=== PATIENT | male | born 1950 | race Caucasian/White ===

== ENCOUNTER 2022-07-09 11:06 | Inpatient (IN) | payer MEDICARE, MEDICAID, SELFPAY ==
[2022-07-09] VITALS (18 sets, daily range): BP systolic 123–139; BP diastolic 63–94; PULSE 79–88; RESP 16–20; TEMP 36.2–36.9; O2SAT 93–97
--- NOTE | ~2022-07-09 | CT_ITS ---
EXAMINATION: CT brain wo con DATE: 07/09/2022 20:37 INDICATION: AMS . TECHNIQUE: Computed tomography (CT) of the head was performed with intravenous contrast. The mA was a djusted according to patient size. Iterative reconstruction technique was employed. The dose-length p roduct was 1816.00 mGy-cm. COMPARISON: None. FINDINGS: Exam limited by motion artifact requiring multiple sets of repeat imaging. A small portion of the lef t frontal lobe near the vertex was not included in the [id number]. No acute intracranial hemorrhage or extra-axial fluid collection. No hydrocephalus, mass, or herniation. No acute ischemic infarct. Unremarkable dural venous sinus attenuation. No acute osseous abnormality. The aerated spaces are clear. Mild atrophy and chronic white matter change. Atherosclerotic intracranial calcification. Focal old r ight cerebellar infarct. Left lens replacement. IMPRESSION: Mildly limited examination as detailed above. No acute intracranial process. Reviewed, dictated and finalized at location K.
--- NOTE | ~2022-07-09 | CT_ITS ---
EXAMINATION: CT abdomen pelvis wo con DATE: 07/11/2022 08:32 INDICATION: Nausea and vomiting. TECHNIQUE: Computed tomography (CT) of the abdomen and pelvis was performed without intravenous contr ast. Automated exposure control and iterative reconstruction technique were employed. The dose-length product was 612.23 mGy-cm. COMPARISON: CT abdomen and pelvis 03/19/2018 FINDINGS: The visualized portions of the lung bases demonstrate mild dependent atelectasis bilaterall y. No pleural effusion. The heart size is normal. No pericardial effusion. There is a moderate-sized sliding hiatal hernia. The liver demonstrates pneumobilia, likely secondary to sphincterotomy. There are changes of cholecystectomy. The spleen, pancreas, and adrenal glands are normal. There is cortica l thinning of the kidneys. There are cysts in the kidneys measuring up to 5.0 cm on the right. The pr ostate is mildly enlarged. There is diverticulosis of the colon without evidence of diverticulitis. T he appendix is normal. There are no dilated loops of bowel. There are no pathologically enlarged lymp h nodes. There is no free intraperitoneal fluid. There is severe thoracic spondylosis and mild lumbar spondylosis. There are is a hemangioma in L2 vertebral body. IMPRESSION: 1. Moderate-sized sliding hiatal hernia. Reviewed, dictated and finalized at location A.
--- NOTE | ~2022-07-09 | XR_ITS ---
EXAMINATION: XR chest 1V portable Exam Date/Time: 07/09/2022 19:20 CDT HISTORY: AMS Comparison: 04/25/2019. RESULT: Lines, tubes, and devices: Cholecystectomy clips. Lungs and pleura: Patchy airspace and reticular opacities in the bilateral mid and lower lungs. Biba silar scar/atelectasis. Cardiomediastinal silhouette: Stable. Small hiatal hernia. Other: No acute osseous or upper abdominal finding. IMPRESSION: Bilateral pulmonary opacities may represent pulmonary edema. Infection is not excluded. Reviewed, dictated and finalized at location K. IMPRESSION: Bilateral pulmonary opacities may represent pulmonary edema. Infection is not e xcluded.
--- NOTE | 2022-07-09 11:11 | PC.NURSE ---
Multiple attempts to evaluate SpO2. with help of staff. Staff reports that pt does not like things on fingers at all and has never allow SpOs eval while at facility.
--- NOTE | 2022-07-09 13:20 | ECG_ITS ---
Measurements Intervals [place] Rate: 77 P: 50 SC: 160 QRS: -7 QRSD: 90 T: 10 QT: 363 QTc: 413 Interpretive Statements SINUS RHYTHM WITH SINUS ARRHYTHMIA NONSPECIFIC T-WAVE ABNORMALITY ABNORMAL ECG COMPARED TO ECG 04/28/2019 17:15:52 SINUS RHYTHM NOW PRESENT SINUS ARRHYTHMIA NOW PRESENT Electronically Signed On 07-10-2022 13:39:48 CDT by Raúl Mullins M.D.
[2022-07-09 14:58] LABS: Basophils Absolute Auto 0.1 K/mm3 (0.0-0.1); Basophils Percent Auto 0.8 % (0.2-1.2); Eosinophils Absolute Auto 0.1 K/mm3 (0-0.3); Eosinophils Percent Auto 0.8 % (0-4.4); Hematocrit 47.3 % (42.0-52.0); Hemoglobin 15.1 g/dL (14.0-18.0); Immature Granulocyte Absolute 0.02 K/mm3 (0.00-0.031); Immature Granulocyte Percent A 0.3 % (0-0.5); Lymphocytes Absolute Auto 0.91 K/mm3 (0.9-3.2); Lymphocytes Percent Auto 12.5 % (18.3-44.2); Mean Corpuscular HGB Conc 31.9 g/dl (32-36); Mean Corpuscular Hemoglobin 28.9 pg (26-34); Mean Corpuscular Volume 90.6 fl (80-100); Mean Platelet Volume 9.4 fl (7.4-10.4); Monocytes Absolute Auto 0.7 K/mm3 (0.1-0.6); Monocytes Percent Auto 9.2 % (2.6-8.5); Neutrophils Absolute Auto 5.6 K/mm3 (1.3-6.7); Neutrophils Percent Auto 76.4 % (45.5-73.1); Platelet Count Result 259 k/mm3 (150-375); Red Blood Count 5.22 M/mm3 (4.6-6.20); Red Cell Distribution Width 13.2 % (11.5-14.5); White Blood Count 7.3 K/mm3 (4.5-10.0)
[2022-07-09 15:10] LABS: Alanine Aminotransferase 36 U/L (6-50); Albumin Level 4.5 g/dL (3.5-5.1); Alkaline Phosphatase 122 U/L (38-126); Anion Gap 10 mmol/L (8-16); Aspartate Amino Transferase 28 U/L (17-59); Bilirubin,Total 0.9 mg/dL (0.2-1.3); Blood Urea Nitrogen 28 mg/dL (9-20); Calcium 9.3 mg/dL (8.4-10.2); Carbon Dioxide 26 mmol/L (22-30); Chloride 103 mmol/L (98-107); Estimated CRCL calculation 36 ml/min; Estimated Glomerular Filt Rate 55; Glucose 99 mg/dL (65-110); Potassium 4.3 mmol/L (3.4-5.0); Sodium 139 mmol/L (137-145)
--- NOTE | 2022-07-09 17:54 | ED.MALEGU ---
HPI - Male Genitourinary General Chief complaint: Urogenital-Male Stated complaint: UTI on bactrim - not eating or drinking Time Seen by Provider: 07/09/22 17:45 History of Present Illness HPI Narrative: Patient is a 72-year-old male with a history of intellectual disability, epilepsy, hypertension, here with his grain combiner from his correction for concerns for altered mental status. History obtained from patient's grain combiner. According to the grain combiner, patient has been more lethargic than usual, not acting like his usual self, not eating or drinking. He has spiked low-grade fevers at home that they have been treating with Tylenol. He has been coughing purulent sputum. He was taken to an urgent care facility yesterday and was diagnosed with a UTI and started on Bactrim, but the patient has been refusing this. Related Data Home Medications Medication Instructions Recorded Confirmed amlodipine 5 mg tablet 5 mg PO DAILY 04/26/19 07/09/22 calcium carbonate 500 mg calcium 500 mg PO BID 04/26/19 07/09/22 (1,250 mg) chewable tablet (Calcium 500) cetirizine 10 mg tablet (Zyrtec) 10 mg PO DAILY 04/26/19 07/09/22 simvastatin 20 mg tablet 20 mg PO HS 04/26/19 07/09/22 omeprazole 20 mg PO DAILY 07/09/22 07/09/22 sulfamethoxazole 800 mg PO DAILY 07/09/22 07/09/22 Allergies Allergy/AdvReac Type Severity Reaction Status Date / Time No Known Allergies Allergy Verified 07/09/22 11:07 Review of Systems Review of Systems: ROS unobtainable: Yes unobtainable due to mental status [facility] Past Medical History Medical History (Updated 07/09/22 @ 21:10 by Chikis Robertson PA-C) Allergic rhinitis Cataracts, bilateral Diverticulosis History of osteoporosis HLD (hyperlipidemia) HTN (hypertension) Intellectual disability Seizures Surgical History Surgical History Surgical history unknown Family History Family History Unknown Family history unknown Unable to be obtained as patient is nonverbal Other Cerebrovascular accident Diabetes mellitus History of blood clots Hypertension Prostate carcinoma Social History Social History Social History: Patient is from a correction. There was a caregiver with him earlier but he is nonverbal at baseline. Smoking status: Never smoker Second hand tobacco smoke exposure: No Alcohol intake: never Substance use: never Substance use type: does not use Living arrangements: correction Gender identity (if verbalized by the patient): Male Spiritual care concerns: No Exam Narrative: APPEARANCE: Alert, well-appearing, waving and winking at examiner Head: Normocephalic and atraumatic. EYES: PERRLA/EOMI, conjunctivae clear NOSE: No nasal drainage EARS: External ear normal in appearance THROAT: Oropharynx is clear. Mucous membranes are moist. NECK: Supple. No adenopathy, no masses. RESPIRATORY: Coughing throughout exam. Coarse breath sounds throughout. CARDIOVASCULAR: Regular rate and rhythm without murmurs, rubs, or gallops. ABDOMINAL: Normoactive bowel sounds. Soft, nontender, nondistended. No rebound tenderness or guarding. MUSCULOSKELETAL: Trace pitting edema to BLE. Extremities are warm and well-perfused. Moves all extremities well. NEURO: Normal speech. No focal neurologic deficits. SKIN: Skin is warm and dry. No rashes. PSYCHIATRIC: Normal affect/mood. Course Vital Signs Vital signs: Vital Signs Temperature 98.4 F 07/09/22 11:09 Pulse Rate 88 07/09/22 11:09 Respiratory Rate 20 07/09/22 11:09 Blood Pressure 131/75 07/09/22 11:09 Oxygen Delivery Room Air 07/09/22 11:09 Temperature 97.1 F L 07/09/22 23:55 Pulse Rate 86 07/09/22 23:55 Respiratory Rate 16 07/09/22 23:55 Blood Pressure 123/63 07/09/22 23:55 Pulse Oximetry 94 07/09/22 23:55 Oxyg
[2022-07-09] MEDS: LORazepam INJ (*CRX) 2 MG/ML VIAL 0.5 MG IM (18:36)
--- NOTE | 2022-07-09 18:40 | PC.NURSE ---
PT WAS TAKEN DOWN TO CT SCAN FOR IMAGING. PT IS UNABLE TO FOLLOW COMMANDS. WON'T LIE FLAT OR STILL. COUGHING AND GAGGING SELF WITH DARK LOOKING EMESIS BEING SPIT OUT. TAKEN BACK TO ROOM. DERRICK MADE AWARE. UNABLE TO INITIATE IV D/T NOT STAYING STILL AND CHEYANNE ARMS. IM ATIVAN GIVEN PER ORDER. WILL AWAIT PT CALMING DOWN. PT'S HELPER IS AT BEDSIDE AND REPORTS THAT PT ATE CHOCOLATE COVERED RAISINS THIS AFTERNOON.
[2022-07-09 19:03] LABS: Appearance Urine Clear (Clear); Bacteria Urine None Seen /hpf; Bilirubin Urine 1+ (Negative); Blood Urine Negative (Negative); Color Urine Dark Yellow (Yellow); Glucose Urine UA Negative (Negative); Ketones Urine Trace mg/dL (Negative); Leukocyte Esterase Ur Negative LEU/UL (Negative); Need Manual Microscopic Reviewed; Nitrate Urine Negative (Negative); Protein Urine 1+ mg/dL (Negative); RBC Urine 0-2 /hpf (0-2); Specific Grav Ur 1.033 (1.001-1.035); Squamous Epithelial Cell Urine Occasional /hpf (Few); WBC Urine 0-5 /hpf; pH Urine 5.5 (5.0-9.0)
[2022-07-09 19:07] LABS: Add Urine Microscopic? YES
--- NOTE | 2022-07-09 19:10 | PC.NURSE ---
REPORT TO BENTON HUI. CARE TRANSFERRED
[2022-07-09] MEDS: ONDANSETRON INJ 4 MG/2 ML VIAL IV PUSH (19:37)
[2022-07-09 19:40] LABS: Lactic Acid Reflex 0.9 mmol/L (0.7-2.0); Magnesium 2.5 mg/dL (1.6-2.3)
[2022-07-09 20:10] LABS: NT Pro B Type Natriuretic Pept 182 pg/mL (19.9-100)
[2022-07-09] MEDS: SODIUM CHLORIDE 0.9% IV 1,000 ML 999 ML IV CONT (21:12)
--- NOTE | 2022-07-09 21:20 | PM.IMHP ---
H&P: HPI History of Present Illness Date/Time: 07/09/22 21:20 Chief Complaint: Fevers Narrative: This is a 72-year-old male with past medical history significant for intellectual disability, seizure disorder, atrial fibrillation, hypertension, dyslipidemia, type 2 diabetes mellitus. Patient was brought for evaluation to the emergency room due to fevers productive cough patient is unable to give any history he is nonverbal according to caregiver who is at bedside states that patient can speak some words however does not make any sense . Patient had been seen the day before at an urgent care and prescribed antibiotics, Bactrim, however has had poor per orally intake and has refused to take it. Preliminary workup was significant for chest x-ray was reported as: RESULT: Lines, tubes, and devices:? Cholecystectomy clips. Lungs and pleura:? Patchy airspace and reticular opacities in the bilateral mid and lower lungs. Bibasilar scar/atelectasis. Cardiomediastinal silhouette:? Stable. Small hiatal hernia. Other:? No acute osseous or upper abdominal finding. ? IMPRESSION: Bilateral pulmonary opacities may represent pulmonary edema. Infection is not excluded. CT head was reported as: FINDINGS: Exam limited by motion artifact requiring multiple sets of repeat imaging. A small portion of the left frontal lobe near the vertex was not included in the [id number]. No acute intracranial hemorrhage or extra-axial fluid collection. No hydrocephalus, mass, or herniation. No acute ischemic infarct. Unremarkable dural venous sinus attenuation. No acute osseous abnormality. The? aerated spaces are clear. Mild atrophy and chronic white matter change. Atherosclerotic intracranial calcification. 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 Left lens replacement. IMPRESSION:? Mildly limited examination as detailed above. No acute intracranial process. Patient has been admitted for further evaluation management and treatment. Review of Systems Review of Systems: ROS unobtainable: Yes unobtainable due to medical condition (Intellectual disability) [facility] Past Medical History Medical History (Updated 07/09/22 @ 21:10 by Chikis Robertson PA-C) Allergic rhinitis Cataracts, bilateral Diverticulosis History of osteoporosis HLD (hyperlipidemia) HTN (hypertension) Intellectual disability Seizures Surgical History Surgical History Surgical history unknown Family History Family History Unknown Family history unknown Unable to be obtained as patient is nonverbal Social History Social History Social History: Patient is from a [facility]. There was a caregiver with him earlier but he is nonverbal at baseline. Smoking status: Unknown if ever smoked Alcohol intake: never Substance use: unknown Substance use type: unknown Living arrangements: penitentiary Gender identity (if verbalized by the patient): Male Meds Home Medications and Allergies Home Medications Medication Instructions Recorded Confirmed Type amlodipine 5 mg tablet 5 mg PO DAILY 04/26/19 10/31/20 History calcium carbonate 500 mg calcium 500 mg PO BID 04/26/19 10/31/20 History (1,250 mg) chewable tablet (Calcium 500) cetirizine 10 mg tablet (Zyrtec) 10 mg PO DAILY 04/26/19 10/31/20 History denosumab 60 mg/mL subcutaneous 60 mg subcut [id number] 04/26/19 10/31/20 History syringe (Prolia) famotidine 20 mg tablet (Pepcid AC) 40 mg PO DAILY 04/26/19 10/31/20 History furosemide 20 mg tablet (Lasix) 20 mg PO 2XW 04/26/19 10/31/20 History simvastatin 20 mg tablet 20 mg PO HS 04/26/19 10/31/20 History triamcinolone acetonide topical 2XW 04/26/19 10/31/20 History aspirin 325 mg tablet,delayed 325 mg PO QAM #30 tabs 04/30/19 10/31/20 Rx release Allergies Allergy/AdvR
[2022-07-09 21:51] LABS: Influenza A QL RT-PCR Negative (Negative); Influenza B QL RT-PCR Negative (Negative); SARS-CoV-2 RNA PCR Negative
--- NOTE | 2022-07-09 23:01 | ADMGEN ---
This patient, Edwin Parnell, was admitted to 2 Medical Room 258-. Patient/family oriented to hospital policies and general routines including ID bracelet, bed and alarms, visiting hours, pain management, procedures, bathroom and other care routines, personal items, smoking policy, room service/diet, and visiting hours. Information on how to activate the Rapid Response Team has been discussed. Patient/Family are encouraged to report perceived risks to care and to ask questions if they do not understand what they are told or what they should do.
--- NOTE | 2022-07-09 23:25 | PC.NURSE ---
Called the patient's POA, [place]. The POA was unable to provide information regarding medications that the patient is currently taking or specific medical history. The patient did not come with any paperwork from the facility that he came from and the POA was unable to provide the name of the facility either.
[2022-07-10 06:00] VITALS: BP 101/63; PULSE 81; RESP 20; TEMP 36.2; O2SAT 98
[2022-07-10 09:48] VITALS: BP 127/77
--- NOTE | 2022-07-10 09:53 | PC.NURSE ---
Unable to get patient to take PO meds at this time, will continue to attempt.
[2022-07-10 10:28] VITALS: O2SAT 96
[2022-07-10 10:49] LABS: Hematocrit 42.1 % (42.0-52.0); Hemoglobin 13.8 g/dL (14.0-18.0); Mean Corpuscular HGB Conc 32.8 g/dl (32-36); Mean Corpuscular Hemoglobin 29.1 pg (26-34); Mean Corpuscular Volume 88.6 fl (80-100); Mean Platelet Volume 9.8 fl (7.4-10.4); Platelet Count Result 237 k/mm3 (150-375); Red Blood Count 4.75 M/mm3 (4.6-6.20); Red Cell Distribution Width 12.8 % (11.5-14.5); White Blood Count 6.2 K/mm3 (4.5-10.0)
[2022-07-10 10:57] LABS: Anion Gap 5 mmol/L (8-16); Blood Urea Nitrogen 28 mg/dL (9-20); Calcium 8.6 mg/dL (8.4-10.2); Carbon Dioxide 29 mmol/L (22-30); Chloride 104 mmol/L (98-107); Estimated CRCL calculation 45 ml/min; Estimated Glomerular Filt Rate > 60; Glucose 114 mg/dL (65-110); Potassium 4.1 mmol/L (3.4-5.0); Sodium 138 mmol/L (137-145)
--- NOTE | 2022-07-10 13:14 | PC.NURSE ---
On 07/10/22, the student, [Jenae Kumar], provided care and completed [facility] documentation on this patient. I have reviewed the student's documentation and agree with the findings.
[2022-07-10 14:00] VITALS: BP 123/77; PULSE 92; RESP 16; TEMP 37.1
--- NOTE | 2022-07-10 16:13 | PM.IMPN ---
Progress Note: A&P Assessment and Plan (1) Community acquired pneumonia: Qualifiers: Laterality: right Lung location: lower lobe of lung Qualified Code(s): J18.9 - Pneumonia, unspecified organism Code(s): J18.9 - Pneumonia, unspecified organism Status: Acute Assessment and Plan: patient presented to the ED with caregiver stating patient has been coughing. Chest x-ray revealing bilateral pulmonary opacities may represent pulmonary edema infection not excluded. Patient started on Rocephin and Zithromax Cultures no growth to date Supportive care Continue to monitor Vital signs and labs stable. Possible discharge tomorrow if patient is condition remains unchanged (2) Vomiting: Code(s): R11.10 - Vomiting, unspecified Status: Acute Assessment and Plan: Patient with episode of vomiting on 07/10/2022. Zofran p.r.n. Patient received IV fluids CT abdomen pelvis ordered. Labs for the morning include CRP, lactic acid, lipase, CBC, CMP and magnesium. (3) HTN (hypertension): Code(s): I10 - Essential (primary) hypertension Status: Acute Assessment and Plan: Resume home meds Continue to monitor (4) Intellectual disability: Code(s): F79 - Unspecified intellectual disabilities Status: Acute Assessment and Plan: Unchanged Supportive care Resides at home group Subjective Date/time seen: 07/10/22 16:13 Interval history: Patient is non verbal. Patient had episode of vomiting. Patient getting Zofran and CT abdomen pelvis ordered. Patient originally admitted for fever and productive cough. Review of Systems Review of Systems: ROS unobtainable: Yes unobtainable due to medical condition Exam Narrative: GENERAL: Comfortable, no acute distress HENMT: moist mucous membranes RESPIRATORY: clear to auscultation CARDIO: RRR GI: soft, nontender, bowel sounds present SKIN: no rashes EXTREMITIES: no edema, redness or tenderness Objective Data Vital Signs Vital Signs: Vital Signs - 24 hr 07/09/22 19:41 07/09/22 19:46 07/09/22 20:01 Temperature Pulse Rate Respiratory Rate Blood Pressure 136/94 H 126/80 136/91 H Pulse Oximetry Oxygen Delivery 07/09/22 20:16 07/09/22 20:41 07/09/22 20:45 Temperature Pulse Rate Respiratory Rate Blood Pressure 136/94 H Pulse Oximetry 94 95 Oxygen Delivery 07/09/22 21:00 07/09/22 21:15 07/09/22 21:30 Temperature Pulse Rate Respiratory Rate Blood Pressure Pulse Oximetry 95 97 96 Oxygen Delivery 07/09/22 21:45 07/09/22 22:00 07/09/22 22:15 Temperature Pulse Rate Respiratory Rate Blood Pressure Pulse Oximetry 96 96 93 Oxygen Delivery 07/09/22 22:30 07/09/22 22:36 07/09/22 22:43 Temperature 97.4 F L Pulse Rate Respiratory Rate Blood Pressure 133/89 Pulse Oximetry 93 94 Oxygen Delivery 07/09/22 23:55 07/10/22 06:00 07/10/22 09:48 Temperature 97.1 F L 97.2 F L Pulse Rate 86 81 Respiratory Rate 16 20 Blood Pressure 123/63 101/63 127/77 Pulse Oximetry 94 98 Oxygen Delivery 07/10/22 10:28 07/10/22 10:00 07/10/22 14:00 Temperature 98.8 F Pulse Rate 92 Respiratory Rate 16 Blood Pressure 123/77 Pulse Oximetry 96 Oxygen Delivery Room Air Room Air Intake/Output Intake/Output: Intake & Output 07/07/22 07/08/22 07/09/22 07/10/22 23:59 23:59 23:59 23:59 Intake Total 1300 750 Output Total 0 Balance 1300 750 Meds/Results Medications: Active Medications Generic Name Dose Route Start Last Admin Trade Name Freq PRN Reason Stop Dose Admin Amlodipine Besylate 5 mg 07/10/22 09:00 07/10/22 12:32 Amlodipine Besylate 5 Mg Tablet PO Not Given DAILY [facility] Enoxaparin Sodium 40 mg 07/10/22 09:00 07/10/22 12:32 Enoxaparin 40 Mg/0.4 Ml Syringe SUB-Q Not Given DAILY [facility] Ceftriaxone Sodium 1 g
[2022-07-10 20:55] VITALS: BP 138/81
--- NOTE | 2022-07-10 21:25 | PC.NURSE ---
PT COUSIN FREDI SINGH APPROVED BY JAYNE FERRERA TO RECEIVE PT INFORMATION AND UPDATES. ADDED HER TO THE CONTACT LIST PHONE NUMBER [phone]
--- NOTE | 2022-07-11 05:20 | PC.NURSE ---
PT PULLING AWAY AND REFUSING TO GET LABS DRAWN. NOTIFIED BY LAB. PT HAS BEEN AGITATED WHEN ANYONE TOUCHES HIM THROUGHOUT THE SHIFT
[2022-07-11 05:44] VITALS: BP 126/58
[2022-07-11 08:49] LABS: Basophils Absolute Auto 0.1 K/mm3 (0.0-0.1); Eosinophils Absolute Auto 0.1 K/mm3 (0-0.3); Eosinophils Percent Auto 1.9 % (0-4.4); Hemoglobin 14.4 g/dL (14.0-18.0); Immature Granulocyte Absolute 0.03 K/mm3 (0.00-0.031); Immature Granulocyte Percent A 0.4 % (0-0.5); Lymphocytes Absolute Auto 0.94 K/mm3 (0.9-3.2); Lymphocytes Percent Auto 13.8 % (18.3-44.2); Mean Corpuscular HGB Conc 33.5 g/dl (32-36); Mean Corpuscular Hemoglobin 29.5 pg (26-34); Mean Corpuscular Volume 88.1 fl (80-100); Mean Platelet Volume 9.6 fl (7.4-10.4); Monocytes Absolute Auto 0.5 K/mm3 (0.1-0.6); Monocytes Percent Auto 7.6 % (2.6-8.5); Neutrophils Absolute Auto 5.1 K/mm3 (1.3-6.7); Neutrophils Percent Auto 75.3 % (45.5-73.1); Platelet Count Result 251 k/mm3 (150-375); Red Blood Count 4.88 M/mm3 (4.6-6.20); Red Cell Distribution Width 12.7 % (11.5-14.5); White Blood Count 6.8 K/mm3 (4.5-10.0)
[2022-07-11 09:00] LABS: Lactic Acid Reflex 1.2 mmol/L (0.7-2.0)
[2022-07-11 09:04] LABS: Alanine Aminotransferase 31 U/L (6-50); Albumin Level 4.1 g/dL (3.5-5.1); Alkaline Phosphatase 121 U/L (38-126); Anion Gap 10 mmol/L (8-16); Aspartate Amino Transferase 39 U/L (17-59); Bilirubin,Total 0.9 mg/dL (0.2-1.3); Blood Urea Nitrogen 26 mg/dL (9-20); CRP 1.8 mg/dL (<1.0); Calcium 8.6 mg/dL (8.4-10.2); Carbon Dioxide 23 mmol/L (22-30); Chloride 106 mmol/L (98-107); Estimated CRCL calculation 41 ml/min; Estimated Glomerular Filt Rate 60; Glucose 83 mg/dL (65-110); Lipase 117 U/L (23-300); Magnesium 2.2 mg/dL (1.6-2.3); Potassium 4.3 mmol/L (3.4-5.0); Sodium 139 mmol/L (137-145)
[2022-07-11 09:09] VITALS: BP 125/80
[2022-07-11] MEDS: ONDANSETRON INJ 4 MG/2 ML VIAL IV PUSH (12:28)
[2022-07-11] MEDS: AZITHROMYCIN 250 MG TABLET 500 MG PO (12:31)
[2022-07-11] MEDS: AMOXICILLIN/CLAVULANATE K 875-125 MG TAB 1 TABLET PO ×2 (12:31→20:02)
[2022-07-11 14:00] VITALS: BP 119/71; PULSE 89; RESP 18; TEMP 37.2; O2SAT 97
[2022-07-11] MEDS: PANTOPRAZOLE SODIUM IV 40 MG VIAL IV PUSH (14:47)
[2022-07-11 16:01] VITALS: PULSE 89; RESP 18; O2SAT 97
[2022-07-11] MEDS: SIMVASTATIN 20 MG TABLET PO (20:02)
[2022-07-11 20:52] VITALS: BP 101/76; RESP 18; TEMP 36.8
[2022-07-12 05:14] VITALS: BP 103/70; RESP 18; TEMP 37
[2022-07-12 05:58] LABS: Basophils Absolute Auto 0.1 K/mm3 (0.0-0.1); Basophils Percent Auto 1.5 % (0.2-1.2); Eosinophils Absolute Auto 0.2 K/mm3 (0-0.3); Eosinophils Percent Auto 3.1 % (0-4.4); Hematocrit 43.7 % (42.0-52.0); Hemoglobin 14.3 g/dL (14.0-18.0); Immature Granulocyte Absolute 0.01 K/mm3 (0.00-0.031); Immature Granulocyte Percent A 0.2 % (0-0.5); Lymphocytes Absolute Auto 0.98 K/mm3 (0.9-3.2); Lymphocytes Percent Auto 16.1 % (18.3-44.2); Mean Corpuscular HGB Conc 32.7 g/dl (32-36); Mean Corpuscular Hemoglobin 28.9 pg (26-34); Mean Corpuscular Volume 88.3 fl (80-100); Mean Platelet Volume 9.3 fl (7.4-10.4); Monocytes Absolute Auto 0.6 K/mm3 (0.1-0.6); Monocytes Percent Auto 10.3 % (2.6-8.5); Neutrophils Absolute Auto 4.2 K/mm3 (1.3-6.7); Neutrophils Percent Auto 68.8 % (45.5-73.1); Platelet Count Result 258 k/mm3 (150-375); Red Blood Count 4.95 M/mm3 (4.6-6.20); Red Cell Distribution Width 12.7 % (11.5-14.5); White Blood Count 6.1 K/mm3 (4.5-10.0)
[2022-07-12 06:08] LABS: Alanine Aminotransferase 30 U/L (6-50); Albumin Level 4.2 g/dL (3.5-5.1); Alkaline Phosphatase 110 U/L (38-126); Anion Gap 8 mmol/L (8-16); Aspartate Amino Transferase 40 U/L (17-59); Bilirubin,Total 0.8 mg/dL (0.2-1.3); Blood Urea Nitrogen 29 mg/dL (9-20); Carbon Dioxide 26 mmol/L (22-30); Chloride 108 mmol/L (98-107); Estimated CRCL calculation 38 ml/min; Estimated Glomerular Filt Rate 55; Glucose 86 mg/dL (65-110); Potassium 4.3 mmol/L (3.4-5.0); Sodium 142 mmol/L (137-145)
[2022-07-12 08:21] VITALS: BP 160/88; PULSE 93; RESP 14
[2022-07-12] MEDS: LORATADINE 10 MG TABLET PO (08:23)
[2022-07-12] MEDS: ENOXAPARIN 40 MG/0.4 ML SYRINGE SUB-Q (08:23)
[2022-07-12] MEDS: AMOXICILLIN/CLAVULANATE K 875-125 MG TAB 1 TABLET PO (08:23)
[2022-07-12] MEDS: amLODIPine BESYLATE 5 MG TABLET PO (08:23)
[2022-07-12] MEDS: PANTOPRAZOLE SODIUM IV 40 MG VIAL IV PUSH (08:23)
--- NOTE | 2022-07-12 10:01 | PCSTNOTE ---
Please refer to the Bedside Swallow Evaluation in the EMR. Please note, silent aspiration cannot be ruled out at bedside.
[2022-07-12 14:50] VITALS: BP 113/71; PULSE 86; RESP 18; TEMP 36.7
--- NOTE | 2022-07-12 15:15 | PM.IMPN ---
Progress Note: A&P Assessment and Plan (1) Community acquired pneumonia: Qualifiers: Laterality: right Lung location: lower lobe of lung Qualified Code(s): J18.9 - Pneumonia, unspecified organism Code(s): J18.9 - Pneumonia, unspecified organism Status: Acute Assessment and Plan: patient presented to the ED with caregiver stating patient has been coughing. Chest x-ray revealing bilateral pulmonary opacities may represent pulmonary edema infection not excluded. Patient started on Rocephin and Zithromax on admission. He has been vomiting which may be secondary to hiatal hernia/GERD and potentially leading to aspiration pneumonia. Unclear if this is related. Cultures no growth to date Supportive care Continue to monitor Vital signs and labs stable. Changed to [id number]/125 mg PO BID x 7 days on 07/11 Speech eval in am. (2) Vomiting: Qualifiers: Vomiting type: bilious vomiting Nausea presence: unspecified Qualified Code(s): R11.14 - Bilious vomiting Code(s): R11.10 - Vomiting, unspecified Status: Acute Assessment and Plan: Patient with episode of vomiting on 07/10/2022. Zofran p.r.n. Patient received IV fluids CT abdomen pelvis shows moderate sliding hiatal hernia. Question if this is secondary to GERD. change to protonix 40 mg IV daily. (3) HTN (hypertension): Qualifiers: Hypertension type: primary hypertension Qualified Code(s): I10 - Essential (primary) hypertension Code(s): I10 - Essential (primary) hypertension Status: Chronic Assessment and Plan: Continue amlodipine Continue to monitor Stable. (4) Intellectual disability: Code(s): F79 - Unspecified intellectual disabilities Status: Chronic Assessment and Plan: Unchanged. Appears to be baseline. Supportive care Resides at home group Plan CODE STATUS: FULL CODE Discharge disposition: return to [facility] when stable. PT/OT evaluation Antibiotic: day 1 augmentin Time Spent With Patient Time with patient: 25 - 35 minutes Subjective Date/time seen: LATE ENTRY FOR 07/11/22 Interval history: Patient is non verbal. Nursing reports the patient has been refusing his medications and vomited x1 after lunch. Patient originally admitted for fever and productive cough. Nursing staff reports the patient appears to be eating regular consistency food and thin liquids without evidence of aspiration. Review of Systems Review of Systems: ROS unobtainable: Yes unobtainable due to mental status Exam Narrative: GENERAL: Comfortable, no acute distress, lying in bed. HEENT: Normocephalic. Atraumatic. Pupils equal and round. moist mucous membranes RESPIRATORY: clear to auscultation bilaterally. RR regular and unlabored. CARDIO: normal S1 and S2 regular rate and rhythm GI: soft, nontender, bowel sounds present SKIN: no rashes, fair, warm and dry. EXTREMITIES: no edema, redness or tenderness, grossly normal ROM. NEURO: Awake. Nonverbal. Does not follow commands. no focal motor deficits or facial droop noted. Objective Data Vital Signs Vital Signs: Vital Signs - 24 hr 07/11/22 16:01 07/11/22 20:52 07/11/22 20:00 Temperature 98.2 F Pulse Rate 89 Respiratory Rate 18 18 Blood Pressure 101/76 Pulse Oximetry 97 Oxygen Delivery Room Air Room Air 07/12/22 05:14 07/12/22 08:21 07/12/22 08:25 Temperature 98.6 F Pulse Rate 93 Respiratory Rate 18 14 Blood Pressure 103/70 160/88 H Pulse Oximetry Oxygen Delivery Room Air 07/12/22 14:28 07/12/22 14:50 Temperature 98.1 F Pulse Rate 86 Respiratory Rate 18 Blood Pressure 113/71 Pulse Oximetry Oxygen Delivery Room Air Intake/Output Intake/Output: Intake & Output 07/09/22 07/10/22 07/11/22 07/12/22 23:59 23:59 23:59 23:59 Intake Total 1300 1150 480 340 Output Total 0 Balance 1300 1150 480 340 Meds/Results Medica
--- NOTE | 2022-07-12 15:16 | PM.DS ---
DS: Admitting Diagnosis Discharge Date 07/12/2022 Admitting Diagnosis Community acquired pneumonia Essential (primary) hypertension Intellectual disability DS: Discharge Diagnosis Discharge Diagnosis (1) Pneumonia: Qualifiers: Pneumonia type: due to unspecified organism Laterality: bilateral Lung location: lower lobe of lung Qualified Code(s): J18.9 - Pneumonia, unspecified organism Code(s): J18.9 - Pneumonia, unspecified organism Status: Acute Assessment and Plan: patient presented to the ED with caregiver stating patient has been coughing and febrile Chest x-ray revealing bilateral pulmonary opacities may represent pulmonary edema, but infection not excluded. Patient started on Rocephin and Zithromax Blood cultures without no growth to date 07/11 Patient noted to have episodes of emesis and was changed to Augmentin 875/125 mg PO BID x 7 days for concern of possible aspiration pneumonia. No supplemental O2 needed and lung sounds clear on discharge. Speech therapy evaluation negative. (2) Vomiting: Code(s): R11.10 - Vomiting, unspecified Status: Acute Assessment and Plan: Patient with episode of vomiting on 07/10 and 07/11 after eating. Zofran p.r.n. Patient received IV fluids during admission CT abdomen pelvis shows moderate sliding hiatal hernia. This may be secondary to GERD- IV protonix 40 mg initiated. No further vomiting noted. continued on protonix 40 mg daily at discharge. (3) HTN (hypertension): Code(s): I10 - Essential (primary) hypertension Status: Chronic Assessment and Plan: Chronic, stable, continue norvasc. (4) Intellectual disability: Code(s): F79 - Unspecified intellectual disabilities Status: Chronic Assessment and Plan: Chronic, unchanged Supportive care Resides at home group (5) GERD (gastroesophageal reflux disease): Code(s): K21.9 - Gastro-esophageal reflux disease without esophagitis Status: Acute Assessment and Plan: Suspected to be contributing to vomiting. Started on protonix PO therapy. (6) Hiatal hernia: Code(s): K44.9 - Diaphragmatic hernia without obstruction or gangrene Status: Chronic Assessment and Plan: Noted on CT scan. With GERD. Tolerating diet after PPI initiated. DS: Summary Hospital Course Reason for hospitalization: fevers Hospital Course: Patient is a 72-year-old male with intellectual disability, seizure disorder, atrial fibrillation, hypertension, dyslipidemia, and type 2 diabetes mellitus.? He was brought to the ED for evaluation of fevers and productive cough. Patient is nonverbal according to caregiver and unable to provide medical history. Patient had been seen the day before at an urgent care and prescribed Bactrim, however he had poor oral intake and has refused to take it.? Preliminary workup was significant for chest x-ray showing bilateral pulmonary opacities suggestive of pulmonary edema versus pneumonia. He was admitted to the medical floor and treated with IV azithromycin and IV rocephin. He was noted to have at least 2 episodes of vomiting during his hospital stay. CT abd/pelvis was obtained and showed moderate sliding scale hiatal hernia. Patient was initially refusing to take medications. He was treatd with IV protonix 40 mg BID initially. He had no further emesis and was taking medications following this. Speech therapy was consulted for evaluation and concern for possible aspiration. No dysphagia concerns were noted. He was transitioned to augmentin PO BID x7 days, however, to cover aspiration pneumonia in the event he aspirated during emesis episodes. PT/OT was consulted and the patient was discharged with home health. He was discharged in stable condition and will follow up with PCP in 1 week. He was continued on oral protonix 40 mg daily and would recommend continuing for 6-8 weeks. Status at Discharge Co
--- NOTE | 2022-07-12 18:38 | PC.NURSE ---
07/12/22 1630 Attempted to retrieve a COVID swab for placement but was unsuccessful.
== END 2022-07-12 16:50 | disposition home health service (06) | DRG 195 ==
LOC: ANHED 21:10 → ANH2MED 22:29
PROVIDERS: General Practice; Internal Medicine Critical Care Medicine; Admitting Provider Internal Medicine; Emergency Provider Physician Assistant; Visit Provider Nurse Practitioner Family
DX: J18.9 Pneumonia, unspecified organism (principal); E11.9 Type 2 diabetes mellitus without complications; E78.5 Hyperlipidemia, unspecified; F79 Unspecified intellectual disabilities; G40.909 Epilepsy, unspecified, not intractable, without status epilepticus; H26.9 Unspecified cataract; I10 Essential (primary) hypertension; K57.90 Diverticulosis of intestine, part unspecified, without perforation or abscess without bleeding; K21.9 Gastro-esophageal reflux disease without esophagitis; K44.9 Diaphragmatic hernia without obstruction or gangrene; M81.0 Age-related osteoporosis without current pathological fracture; R11.10 Vomiting, unspecified; Z20.822 Contact with and (suspected) exposure to COVID-19; Z79.82 Long term (current) use of aspirin
CPT/HCPCS: 36415; 70450; 71045; 74176; 80048; 80053; 81001; 83605; 83690; 83735; 83880; 85025; 85027; 86140; 87040; 87636; 92610; 93005; 96365; 96367; 96372; 96375; 97161; 97165; 99285; A9270; C9113; G0378; J0131; J0456; J0696; J1650; J2060; J2405; J7030

== ENCOUNTER 2022-08-07 07:47 | Emergency (ER) | payer MEDICARE, BC, MEDICAID, SELFPAY ==
--- NOTE | ~2022-08-07 | XR_ITS ---
Clinical Indication: Cough AP and lateral views of the chest: Comparison: 07/09/2022 Findings: There is mild bibasilar haziness. No pleural effusion evident. Cardiomediastinal silhouett e is within normal limits. Bones and soft tissues are unremarkable. Impression: Bibasilar haziness. Correlate for mild bibasilar pulmonary edema versus possible infection. Reviewed, dictated and finalized at [facility]. Impression: Bibasilar haziness. Correlate for mild bibasilar pulmonary edema versus possibl e infection.
--- NOTE | ~2022-08-07 | CT_ITS ---
CT of the Abdomen and Pelvis: Indication: Abdominal pain Technique: 2.5 mm axial scans were obtained through the abdomen and pelvis following intravenous adm inistration of 100 cc of Omnipaque 350. Dose reduction technique was used on this scan by utilizing a utomated exposure control and iterative reconstruction technique. The dose-length product (DLP) was 3 38.51 mGy-cm. COMPARISON: 07/11/2022 Findings: Scans through the lung bases demonstrate moderate hiatal hernia. Pneumobilia and cholecystectomy clips are noted. No focal hepatic mass seen. The spleen, pancreas, ad renals and kidneys are within normal limits. No evidence of aortic aneurysm. No lymphadenopathy. No bowel obstruction or bowel wall thickening. There is minimal pericolonic inflammatory stranding/fl uid at the proximal sigmoid colon with underlying diverticulosis. No abscess or free air. Suggestion of mild wall thickening of multiple small bowel loops in the right abdomen.. Images through the pelvis were performed. Urinary bladder unremarkable. Prostate gland and seminal ve sicles are unremarkable. No ascites. Impression: Suspected small bowel enteritis. Questionable minimal acute diverticulitis of the proximal sigmoid colon. No abscess or free air. No bowel obstruction. Reviewed, dictated and finalized at [facility]. Impression: Suspected small bowel enteritis. Questionable minimal acute diverticulitis of the proximal sigmoid colon. No abscess or free air. No bowel obstruction.
[2022-08-07 07:56] VITALS: BP 150/87; RESP 16; TEMP 36.2
--- NOTE | 2022-08-07 08:01 | ECG_ITS ---
Measurements Intervals [place] Rate: 94 P: 28 MO: 164 QRS: -14 QRSD: 86 T: 12 QT: 337 QTc: 421 Interpretive Statements SINUS RHYTHM INFERIOR INFARCT, AGE INDETERMINATE BASELINE ARTIFACT- I, II, III, AVR, AVL, AVF, V1-V6 ABNORMAL ECG COMPARED TO ECG 07/09/2022 16:01:29 NO SIGNIFICANT CHANGES Electronically Signed On 08-07-2022 9:33:18 CDT by Gurpreet Dean D.O.
[2022-08-07] MEDS: ONDANSETRON INJ 4 MG/2 ML VIAL IV PUSH (08:13)
[2022-08-07 08:37] VITALS: PULSE 98; RESP 15; O2SAT 100
[2022-08-07 08:37] LABS: Basophils Absolute Auto 0.1 K/mm3 (0.0-0.1); Basophils Percent Auto 0.9 % (0.2-1.2); Eosinophils Absolute Auto 0.1 K/mm3 (0-0.3); Eosinophils Percent Auto 1.3 % (0-4.4); Hematocrit 46.6 % (42.0-52.0); Hemoglobin 15.4 g/dL (14.0-18.0); Immature Granulocyte Absolute 0.02 K/mm3 (0.00-0.031); Immature Granulocyte Percent A 0.3 % (0-0.5); Lymphocytes Absolute Auto 0.68 K/mm3 (0.9-3.2); Lymphocytes Percent Auto 8.5 % (18.3-44.2); Mean Corpuscular Hemoglobin 29.6 pg (26-34); Mean Corpuscular Volume 89.6 fl (80-100); Mean Platelet Volume 9.7 fl (7.4-10.4); Monocytes Absolute Auto 0.4 K/mm3 (0.1-0.6); Monocytes Percent Auto 5.5 % (2.6-8.5); Neutrophils Absolute Auto 6.7 K/mm3 (1.3-6.7); Neutrophils Percent Auto 83.5 % (45.5-73.1); Platelet Count Result 257 k/mm3 (150-375); Red Cell Distribution Width 13.2 % (11.5-14.5)
[2022-08-07 08:41] LABS: Alanine Aminotransferase 37 U/L (6-50); Albumin Level 4.4 g/dL (3.5-5.1); Alkaline Phosphatase 84 U/L (38-126); Anion Gap 5 mmol/L (8-16); Aspartate Amino Transferase 31 U/L (17-59); Bilirubin,Total 0.8 mg/dL (0.2-1.3); Blood Urea Nitrogen 26 mg/dL (9-20); Calcium 9.8 mg/dL (8.4-10.2); Carbon Dioxide 31 mmol/L (22-30); Chloride 103 mmol/L (98-107); Estimated CRCL calculation 46 ml/min; Estimated Glomerular Filt Rate > 60; Glucose 115 mg/dL (65-110); Lipase 132 U/L (23-300); Potassium 4.3 mmol/L (3.4-5.0); Sodium 139 mmol/L (137-145)
--- NOTE | 2022-08-07 08:52 | ED.NAVMDI ---
HPI - Nausea/Vomiting/Diarrhea General Chief complaint: Nausea/Vomiting/Diarrhea Stated complaint: possible aspiration yesterday - cough with n/v Time Seen by Provider: 08/07/22 07:54 History of Present Illness HPI Narrative: Patient presents from residential, he is nonverbal at baseline, per artifacts conservator he had possibly choked on a raisin yesterday, and started coughing and sneezing, and today had thrown up several times. As far as artifacts conservator knows nobody else at the facility is sick. Related Data Home Medications Medication Instructions Recorded Confirmed amlodipine 5 mg tablet 5 mg PO DAILY 04/26/19 07/09/22 calcium carbonate 500 mg calcium 500 mg PO BID 04/26/19 07/09/22 (1,250 mg) chewable tablet (Calcium 500) cetirizine 10 mg tablet (Zyrtec) 10 mg PO DAILY 04/26/19 07/09/22 simvastatin 20 mg tablet 20 mg PO HS 04/26/19 07/09/22 sulfamethoxazole 800 mg PO DAILY 07/09/22 07/09/22 Allergies Allergy/AdvReac Type Severity Reaction Status Date / Time No Known Allergies Allergy Verified 08/07/22 07:48 Review of Systems Review of Systems: Patient nonverbal at baseline ROS unobtainable: Yes other [facility] Past Medical History Medical History Allergic rhinitis Atrial fibrillation Cataracts, bilateral Diverticulosis GERD (gastroesophageal reflux disease) Hiatal hernia History of osteoporosis HLD (hyperlipidemia) HTN (hypertension) Intellectual disability Seizures Surgical History Surgical History Surgical history unknown Family History Family History Unknown Family history unknown Unable to be obtained as patient is nonverbal Other Cerebrovascular accident Diabetes mellitus History of blood clots Hypertension Prostate carcinoma Social History Social History Social History: Patient is from a long term. There was a caregiver with him earlier but he is nonverbal at baseline. Smoking status: Never smoker Second hand tobacco smoke exposure: No Alcohol intake: never Substance use: never Substance use type: does not use Living arrangements: long term Gender identity (if verbalized by the patient): Male Spiritual care concerns: No Exam Narrative: EXAMINATION OF ORGAN SYSTEMS/BODY AREAS: Constitutional: Vital signs per nursing GENERAL:[No acute distress, non-toxic appearing.] HEAD: Normal with no signs of head trauma. EYES: Eyes closed ENT: Hearing grossly intact LUNGS: Nonlabored breathing. HEART: [Regular rate and rhythm] ABD: [Soft], [nontender to palpation] EXT: Normal range of motion SKIN: [No rashes or lesions.] NEURO: [Alert. No gross focal sensory or strength deficits.] PSYCH: Normal affect Course Vital Signs Vital signs: Vital Signs Temperature 97.2 F L 08/07/22 07:56 Respiratory Rate 16 08/07/22 07:56 Blood Pressure 150/87 H 08/07/22 07:56 Temperature 97.2 F L 08/07/22 07:56 Pulse Rate 86 08/07/22 11:01 Respiratory Rate 12 08/07/22 11:01 Blood Pressure 131/89 08/07/22 11:01 Pulse Oximetry 99 08/07/22 11:01 MDM - Nausea/Vomiting/Diarrhea MDM Narrative Medical decision making narrative: Nonverbal patient at baseline presenting with sneezing, cough, nausea and vomiting last few days. Vital signs stable here, on exam he is in no distress, abdomen is soft nontender, no labored respirations. I will obtain broad work-up given he is nonverbal unable to provide me much of the history. Labs are all within acceptable limits, urine does not show any obvious infection, viral panel was negative. Chest x-ray reviewed by myself, my independent interpretation not consistent with a bacterial pneumonia. CT abdomen/pelvis shows possible mild diverticulitis and enteritis. to be started on antibiotics for the diverticuliti
--- NOTE | 2022-08-07 09:18 | PC.NURSE ---
EKG delayed r/t pt in CT scan
[2022-08-07 09:46] VITALS: BP 121/96; PULSE 86; RESP 14; O2SAT 99
[2022-08-07 10:03] LABS: Appearance Urine Clear (Clear); Bacteria Urine None Seen /hpf; Bilirubin Urine Negative (Negative); Blood Urine 1+ (Negative); Color Urine Yellow (Yellow); Glucose Urine UA Negative (Negative); Ketones Urine Negative (Negative); Leukocyte Esterase Ur Negative LEU/UL (Negative); Nitrate Urine Negative (Negative); Non Pathogenic Casts 0-2; Protein Urine Trace mg/dL (Negative); Squamous Epithelial Cell Urine None seen /hpf (Few); WBC Urine 0-5 /hpf
[2022-08-07 10:16] LABS: Specific Grav Ur 1.037 (1.001-1.035)
[2022-08-07 10:17] LABS: Add Urine Microscopic? YES
[2022-08-07 10:23] LABS: Influenza A QL RT-PCR Negative (Negative); Influenza B QL RT-PCR Negative (Negative); RSV RNA, RT-PCR Negative (Negative); SARS-CoV-2 RNA PCR Negative (Negative)
[2022-08-07 11:01] VITALS: BP 131/89; PULSE 86; RESP 12; O2SAT 99
== END 2022-08-07 11:52 | disposition home or self-care (01) ==
PROVIDERS: Emergency Provider Emergency Medicine
DX: K57.32 Diverticulitis of large intestine without perforation or abscess without bleeding (principal); K52.9 Noninfective gastroenteritis and colitis, unspecified; Z20.822 Contact with and (suspected) exposure to COVID-19; I48.91 Unspecified atrial fibrillation; I10 Essential (primary) hypertension; E78.5 Hyperlipidemia, unspecified; K21.9 Gastro-esophageal reflux disease without esophagitis; M81.0 Age-related osteoporosis without current pathological fracture; H26.9 Unspecified cataract; F79 Unspecified intellectual disabilities; R94.31 Abnormal electrocardiogram [ECG] [EKG]; R91.8 Other nonspecific abnormal finding of lung field
CPT/HCPCS: 36415; 71046; 74177; 80053; 81001; 83690; 85025; 87637; 93005; 96374; 99284; J2405; Q9967